=== PATIENT | female | born 1940 | race Caucasian/White ===

== ENCOUNTER 2021-01-28 21:54 | Emergency (ER) | payer MEDICARE ==
[~2021-01-28] VITALS: Ht 162.5 cm; Wt 82.6 kg
[2021-01-28 22:36] LABS: BILIRUBIN Negative (Negative); BLOOD 1+ (Negative); CLARITY Cloudy (Clear); COLOR Yellow (Yellow); GLUCOSE Negative (Negative); KETONE Negative (Negative); LEUKO ESTERASE Trace (Negative); NITRITE Negative (Negative); SPECIFIC GRAVITY 1.015 (1.001-1.030)
[2021-01-28 22:47] LABS: BACTERIA 3+; EPITHELIAL CELLS 31-40; RBC 21-30 rbc/hpf (0-2)
[2021-01-28 22:58] LABS: ALBUMIN 4.3 gm/dl (3.1-4.5); ALKALINE PHOSPHATASE 71 U/L (45-117); BUN 17 mg/dl (7-24); CHLORIDE 104 mmol/L (98-107); CREATININE 0.69 mg/dL (0.55-1.02); POTASSIUM 3.6 mmol/L (3.5-5.1); SGOT/AST 20 IU/L (3-35); SGPT/ALT 24 U/L (12-78); SODIUM 139 mmol/L (136-145); TOTAL PROTEIN 7.5 gm/dL (6.4-8.2); TROPONIN I < 0.015 ng/ml (<0.045)
[2021-01-28 23:35] LABS: HEMATOCRIT 39.7 % (37.0-47.0); MEAN CELL VOLUME 66.5 fl (81.0-99.0); MEAN CORPUSCULAR HGB 19.9 pg (27.0-31.0); RED BLOOD COUNT 5.97 10*6/uL (4.10-5.10); RED CELL DISTRI WIDTH 15.4 % (0-14.5); WHITE BLOOD COUNT 12.4 10*3/uL (4.8-10.8)
[2021-01-28 23:40] LABS: PLATELET COUNT AUTOMATED 20 10*3/uL (130-400)
[2021-01-28 23:43] LABS: BASOPHILS 1 % (0-1); PLATELET SUFFICIENCY LOW (NORMAL); TOTAL CELLS COUNTED 100 #CELLS
[2021-01-28 23:44] LABS: OVALOCYTES FEW
[2021-01-29] MEDS ORDERED: MACROBID100 M1 PO (01:36)
== END 2021-01-29 01:59 | disposition left against medical advice (07) ==
LOC: ED 21:54
PROVIDERS: Nurse Practitioner Family
DX: D69.6 Thrombocytopenia, unspecified (principal); R55 Syncope and collapse; N39.0 Urinary tract infection, site not specified; Z88.5 Allergy status to narcotic agent; Z88.6 Allergy status to analgesic agent